=== PATIENT | male | born 1970 ===

== ENCOUNTER 2017-01-24 00:41 | Emergency (ER) | payer OTHER ==
[2017-01-24] MEDS ORDERED: SODIUM CHLORIDE 0.9% 1000ML 1,000 ML IV STA (00:57)
[2017-01-24] MEDS ORDERED: FENTANYL CITRATE INJ 50 MCG/1 ML 2 ML VIAL IV STA (01:01)
[2017-01-24 01:05] LABS: BASO % 0.1 %; BASO ABS # 0.01 K/uL (0-0.2); COMPLETE YES; EOS % 1.1 %; HEMATOCRIT 42.3 % (42-52); IG% 0.3 %; LYMPH % 27.3 %; MEAN CELL VOLUME 89.4 fL (80-100); MEAN CORPUSCULAR HEMOGLOBIN 30.7 pg (25-34); MEAN CORPUSCULAR HGB CONC 34.3 g/dl (32-36); MONO % 3.7 %; NEUT % 67.5 %; PLATELET COUNT 216 K/uL (130-400); RED BLOOD COUNT 4.73 M/uL (4.7-6.1); WHITE BLOOD COUNT 11.35 K/uL (4.8-10.8)
[2017-01-24 01:09] LABS: ISTAT CREATININE 0.9 mg/dl (0.6-1.3); ISTAT HEMOGLOBIN 14.6 g/dl (14.0-18.0); ISTAT IONIZED CALCIUM 1.13 mmol/l (1.12-1.32)
[2017-01-24 01:20] LABS: PARTIAL THROMBOPLASTIN RATIO 0.9; PROTHROMBIN TIME (PATIENT) 10.6 SECONDS (9.0-12.0)
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
[2017-01-24 01:25] VITALS: TEMP 36.4; O2SAT 94; Ht 170.2 cm
[2017-01-24 01:27] LABS: ALT/SGPT 29 U/L (12-78); AST/SGOT 12 U/L (15-37); BLOOD UREA NITROGEN 13 mg/dl (7-18); CALCIUM 8.6 mg/dl (8.5-10.1); CARBON DIOXIDE 27 mmol/L (21-32); CHLORIDE 105 mmol/L (98-107); GLUCOSE 139 mg/dl (70-99); MAGNESIUM 2.2 mg/dl (1.8-2.4); POTASSIUM 3.5 mmol/L (3.5-5.1); SODIUM 140 mmol/L (136-145)
[2017-01-24 01:30] LABS: ALB/GLOB RATIO 1.1 (0.9-2); ALKALINE PHOSPHATASE 66 U/L (45-117)
[2017-01-24] MEDS ORDERED: OPTIRAY 320 IV PRN (01:30)
[2017-01-24] MEDS ORDERED: MoRPHine SULFATE 4 MG/ML 1 ML CARP\\VIAL IV STA ×2 (03:55→06:39)
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
--- NOTE | 2017-01-24 07:30 | DIAGNOSTIC IMAGING REPORT ---
ABDOMEN AND PELVIS CT WITH IV CONTRAST CT DOSE: 1847.56 mGy.cm HISTORY: injury TECHNIQUE: Multiaxial CT images of the abdomen and pelvis were performed following the use of intravenous contrast. COMPARISON STUDY: None. FINDINGS: The lung bases are clear. The liver, spleen, gallbladder, pancreas, right kidney, and adrenal glands are within normal limits. No bowel wall thickening or obstruction. The pelvic organs are unremarkable. No fractures within the visualized osseous structures. Streak artifact from the patient's overlapping arms results in suboptimal evaluation of the abdomen and pelvis. Normal appendix. No retroperitoneal lymphadenopathy. Subcentimeter hypodense lesion within the left kidney is too small to characterize. IMPRESSION: No definite acute abnormality identified within the abdomen or pelvis. Electronically signed by: Jemal Dash M.D. 01/24/2017 7:28 AM Dictated Date/Time: 01/24/2017 7:25 AM
[2017-01-24 08:11] VITALS: BP 130/82; PULSE 76; O2SAT 97
== END 2017-01-24 08:05 | disposition short-term general hospital (02) ==
LOC: C.EDB 00:45
DX: S01.81XA Laceration without foreign body of other part of head, initial encounter (principal); T24.102A Burn of first degree of unspecified site of left lower limb, except ankle and foot, initial encounter; T24.101A Burn of first degree of unspecified site of right lower limb, except ankle and foot, initial encounter; X08.8XXA Exposure to other specified smoke, fire and flames, initial encounter; M54.2 Cervicalgia